=== PATIENT | female | born 1950 | race Caucasian/White ===

== ENCOUNTER 2019-06-04 08:44 | Emergency (ER) | payer MEDICARE, MEDICAID ==
[~2019-06-04] VITALS: Ht 157.5 cm; Wt 100.0 kg
[~2019-06-04 08:44] MED LIST: AMLO5TAB66 PO; FURO10DI11 IM; LISI-618 PO; MAGN400T25 PO; METO-391 PO; POTA8TAB4 PO; SIMV-43 PO; WARF1TAB85 PO; WARF4TAB72 PO
[2019-06-04] MEDS ORDERED: AMIO200T44 PO (09:04)
[2019-06-04] MEDS ORDERED: LEVO50 PO (09:04)
[2019-06-04] MEDS ORDERED: ELAQUIS PO (09:04)
[2019-06-04] MEDS ORDERED: ATOR40TA28 PO (09:04)
[2019-06-04] MEDS ORDERED: FURO40 PO (09:04)
[2019-06-04] MEDS ORDERED: NITR0.4T50 SL (09:04)
[2019-06-04] MEDS ORDERED: CARV25 PO (09:04)
[2019-06-04] MEDS ORDERED: SACU1TAB PO (09:04)
[2019-06-04] MEDS ORDERED: CAPSAICIN 0.025% 60 GM CREAM TP ONE (10:15)
[2019-06-04] MEDS ORDERED: IBUPROFEN 600 MG TABLET PO ONE (10:15)
[2019-06-04 10:41] VITALS: BP 141/59
[2019-06-04] MEDS ORDERED: ACETAMINOPHEN 325 MG TABLET PO ONE (10:45)
== END 2019-06-04 11:07 | disposition home or self-care (01) ==
LOC: EMS 08:45
DX: M17.11 Unilateral primary osteoarthritis, right knee (principal); I10 Essential (primary) hypertension; E78.00 Pure hypercholesterolemia, unspecified; Z79.899 Other long term (current) drug therapy